=== PATIENT | male | born 1960 | race African-American/Black ===

== ENCOUNTER 2018-04-17 23:17 | Emergency (ER) | payer MEDICARE, MEDICAID ==
[~2018-04-17] VITALS: Ht 177.8 cm; Wt 80.7 kg
[~2018-04-17 23:17] MED LIST: FINA5TAB11 PO; HYDR-4303 PO; IBUP-1957 PO; TAMS0.4C34 PO
[2018-04-17 23:37] VITALS: BP 113/70
[2018-04-17] MEDS ORDERED: LIDOCAINE 1%-EPI 1:100,000 20 ML VIAL ONE (23:45)
--- NOTE | 2018-04-17 23:57 | NUR ---
TRIP NUMBER [id number] FOR [facility] RIDE BACK TO [facility]
== END 2018-04-18 00:32 ==
LOC: ER 23:24
DX: S01.01XA Laceration without foreign body of scalp, initial encounter (principal); F10.10 Alcohol abuse, uncomplicated; Y90.9 Presence of alcohol in blood, level not specified; F17.200 Nicotine dependence, unspecified, uncomplicated; W01.0XXA Fall on same level from slipping, tripping and stumbling without subsequent striking against object, initial encounter; Y93.01 Activity, walking, marching and hiking; Y92.89 Other specified places as the place of occurrence of the external cause; Y99.8 Other external cause status
CPT/HCPCS: A4606; A6402; J3490; Z7610

== ENCOUNTER → 2018-07-09 | Outpatient (CLI) | payer MEDICARE, MEDICAID | LOC: MSC 10:30 | PROVIDERS: ATTEND Anesthesiology | DX: M54.16 Radiculopathy, lumbar region (principal); M17.0 Bilateral primary osteoarthritis of knee; M25.562 Pain in left knee; M25.561 Pain in right knee; M54.5 Low back pain; M25.9 Joint disorder, unspecified; M21.061 Valgus deformity, not elsewhere classified, right knee; F31.9 Bipolar disorder, unspecified; Z79.891 Long term (current) use of opiate analgesic; Z79.899 Other long term (current) drug therapy ==

== ENCOUNTER 2018-10-16 20:33 | Inpatient (IN) | payer MEDICARE, OTHER ==
[~2018-10-16] VITALS: Ht 175.3 cm; Wt 78.5 kg
[2018-10-16] MEDS ORDERED: ACETAMINOPHEN 325 MG TABLET PO PRN (21:30)
[2018-10-16] MEDS ORDERED: TEMAZEPAM 7.5 MG CAPSULE PO PRN (21:30)
[2018-10-16] MEDS ORDERED: MAGNESIUM HYDROXIDE 30 ML UDC PO PRN (21:30)
[2018-10-16] MEDS ORDERED: CELE100C PO (22:19)
[2018-10-16] MEDS ORDERED: BENZ-13 PO (22:21)
[2018-10-16] MEDS ORDERED: ALPR1TAB2 PO (22:22)
[2018-10-16] MEDS ORDERED: LATA2.5D7 EACHEYE (22:24)
[2018-10-16] MEDS ORDERED: DOCU-141 PO (22:30)
[2018-10-16] MEDS: clonazePAM 0.5 MG TABLET PO PRN (22:36)
[2018-10-16 23:19] VITALS: BP 132/70
--- NOTE | 2018-10-16 23:38 | NUR ---
ADMISSION NOTES ADMITTED THIS 58 Y/O MALE PATIENT FROM [facility] , PT. ADMITTED ON 5150 STATUS , PER HOLD DTS/ DTO , FEELING OVERWHELLEMED , ANGARY FEELING THAT LIFE IS NOT WORTH LIVING AND PT. REPORTS HE HAS NOT BEEN ON HIS PSYCH MEDICATION OF MONTHS ,UPON FACE TO FACE ASSESSMENT PATIENT IS A&OX 3 CALM, DEPRESSED , FLAT AFFECT ,EASILY AGITATED , PT.IS POOR HISTORIAN, POOR INSIGHT ,POOR JUDGEMENT ,PT. REFUSED SKIN ASSESSMENT AND REFUSED SIGNS OF ADMISSION PAPERS, AND PT. REFUSED TO PUTING PERSONAL VALUABLE BELONGINGS IN THE SAFE SUPERVISIOR MADE PER PT. I AM CHARGE OF MY PERSONAL VALUABLE BELONGINGS , EXPLAINED RISKS BUT PT. STILL REFUSED, V/S WNL, NO ACUTE DISTRESS NOTED , MD AWARE AND NOTIFIED OF THE ADMISSION, ,ENCOURAGED PT. VERBALIZED ANY FEELING CONCERN TO STAFF, ORIENT TO UNIT POLICY, WILL CONTINUE TO MONITOR FOR Q15 SAFETY AND BEHAVIOR.
[2018-10-17] MEDS ORDERED: IBUPROFEN 800 MG TABLET PO PRN
[2018-10-17 07:51] LABS: BASOPHILS % (AUTO) 0.4 % (0.0-2.0); EOSINOPHILS % (AUTO) 3.6 % (0.0-6.0); HEMATOCRIT 37 % (39-51); LYMPHOCYTES # (AUTO) 1.8 /CMM (0.8-4.8); LYMPHOCYTES % (AUTO) 30.2 % (20.0-44.0); MEAN CORPUSCULAR HGB CONC 32 g/dl (31.0-36.0); MEAN CORPUSCULAR VOLUME 95 fL (80-96); MONOCYTES # (AUTO) 0.7 /CMM (0.1-1.30); MONOCYTES % (AUTO) 12.2 % (2.0-12.0); NEUTROPHILS # (AUTO) 3.2 /CMM (1.8-8.9); NEUTROPHILS % (AUTO) 53.6 % (43.0-81.0); PLATELET COUNT (AUTO) 427 /CMM (150-450); RED BLOOD CELL COUNT(AUTO) 3.87 MIL/uL (4.5-6.0); WHITE BLOOD COUNT (AUTO) 5.9 K/uL (4.3-11.0)
[2018-10-17 08:00] VITALS: BP 113/75
[2018-10-17 08:09] LABS: ALBUMIN 2.9 g/dL (3.4-5.0); BILIRUBIN,TOTAL 0.3 mg/dL (0.2-1.0); CALCIUM, SERUM 9.2 mg/dL (8.5-10.1); CREATININE 0.8 mg/dL (0.6-1.3); POTASSIUM 4.4 mmol/L (3.5-5.1)
[2018-10-17] MEDS: HYDROCODONE/APAP 5/325MG 1 EACH TABLET PO PRN ×2 (08:16→16:40)
[2018-10-17] MEDS: DOCUSATE SODIUM 100 MG CAPSULE PO SCH (09:00)
[2018-10-17] MEDS: FINASTERIDE (5 MG) 5 MG TABLET PO SCH (09:00)
[2018-10-17] MEDS: CELECOXIB 100 MG CAPSULE PO SCH ×2 (09:00→18:16)
[2018-10-17] MEDS: clonazePAM 0.5 MG TABLET PO PRN (09:30)
[2018-10-17 09:31] VITALS: BP 129/63
[2018-10-17] MEDS: BUPROPION XL 150 MG TAB.ER.24 PO SCH (11:14)
[2018-10-17] MEDS: ALPRAZOLAM 1 MG TABLET PO PRN (11:15)
[2018-10-17] MEDS: IBUPROFEN 400 MG TABLET PO PRN ×2 (12:46→21:41)
--- NOTE | 2018-10-17 15:32 | NUR ---
SW contacted pts friend Ezra [phone] per pts request to inform him pt is currently in a psych unit and on a hold and also to discuss pts discharge plan and collateral information. Per friend he stated that pt has a history of leaving board and cares and independent livings and also stating that he is suicidal. Per friend pt often leaves homes and requests money back and has been bouncing from home to home for quit some time. Per friend he stated that pt cannot care for himself and is unable to live alone or live in a [facility]cf[facility]. Friend requests pt be discharged to a care home.
[2018-10-17 16:00] VITALS: BP 106/73
[2018-10-17] MEDS ORDERED: LATANOPROST EYE DROP 0.005% 2.5 ML BOTTLE EACHEYE SCH ×2 (18:00)
[2018-10-17 20:03] VITALS: BP 136/75
[2018-10-17] MEDS: TAMSULOSIN 0.4 MG CAP.SR.24H PO SCH ×2 (21:42→21:46)
[2018-10-17] MEDS: TEMAZEPAM 7.5 MG CAPSULE PO PRN (21:43)
[2018-10-17] MEDS: LATANOPROST EYE DROP 0.005% 2.5 ML BOTTLE OP SCH (21:43)
--- NOTE | 2018-10-18 08:10 | NUR ---
GPS/RN-NOTES PER DR. JOHNSTON D/C RIGO KNIGHT. NOTED AND CARRIED OUT.
[2018-10-18] MEDS: FINASTERIDE (5 MG) 5 MG TABLET PO SCH ×2 (08:14→08:16)
[2018-10-18] MEDS: ALPRAZOLAM 1 MG TABLET PO PRN (08:14)
[2018-10-18] MEDS: CELECOXIB 100 MG CAPSULE PO SCH ×2 (08:14→16:06)
[2018-10-18] MEDS: DOCUSATE SODIUM 100 MG CAPSULE PO SCH ×2 (08:14→08:16)
[2018-10-18] MEDS: BUPROPION XL 150 MG TAB.ER.24 PO SCH (08:14)
--- NOTE | 2018-10-18 08:20 | NUR ---
GPS/RN-NOTES PATIENT REQUESTING XANAX FOR ANXIETY. XANAX 1MG P.O GIVEN PRN ORDER. WILL CONT. MONITORING FOR SAFETY AND BEHAVIOR.
--- NOTE | 2018-10-18 09:01 | NUR ---
INITIAL DISCHARGE PLAN: Patient wishes to be discharged to a SNF. Pt has stated that he does not want to return to his independent living home. SW will help form a safe and proper discharge in collaboration with pt and MD.
--- NOTE | 2018-10-18 09:20 | NUR ---
GPS/RN-NOTES PATIENT IN THE OBSERVATION ROOM LAYING CALM NO ACUTE DISTRESS NOTED.
[2018-10-18] MEDS: HYDROCODONE/APAP 5/325MG 1 EACH TABLET PO PRN ×2 (09:23→17:37)
--- NOTE | 2018-10-18 09:24 | NUR ---
GPS/RN-NOTES PATIENT REQUESTING FOR NORCO FOR LOWER BACK PAIN. NORCO 5/325MG P.O GIVEN PRN ORDER.
--- NOTE | 2018-10-18 09:40 | NUR ---
SW completed substance abuse intervention with pt.
[2018-10-18] MEDS: LORAZEPAM 1 MG TABLET PO PRN (14:22)
--- NOTE | 2018-10-18 14:26 | NUR ---
GPS/RN-NOTES PATIENT REQUESTING FOR ATIVAN FOR ANXIETY. ATIVAN 2MG P.O GIVEN PRN ORDER. WILL CONT. MONITORING FOR SAFETY AND BEHAVIOR.
[2018-10-18] MEDS: IBUPROFEN 400 MG TABLET PO PRN ×2 (15:56→22:12)
[2018-10-18 16:00] VITALS: BP 151/82
--- NOTE | 2018-10-18 16:02 | NUR ---
SW was made aware by TRIM AND BURR OPERATOR that pt had a large amount of marijuana in his personal belongings that was not noted down as contraband when pt was admitted. GUS contacted director of social work and nursing used car sales supervisor to inform them. Nursing used car sales supervisor contacted [facility] and was informed that due to the large amount of marijuana is is considered contraband and thus it must be removed from the patient and tossed int he trash. GUS will inform pt and have nursing staff and security assist with retrieval.
--- NOTE | 2018-10-18 16:05 | NUR ---
GPS/RN-NOTES PATIENT REQUESTING FOR MOTRIN FOR BOTH LEGS PAIN. MOTRIN 800MG P.O GIVEN PRN ORDER.
--- NOTE | 2018-10-18 16:36 | NUR ---
SW witness retrieval of marijuana contraband by security and hospital staff.
--- NOTE | 2018-10-18 17:06 | NUR ---
GPS/RN-NOTES X1 SMALL CONTAINER AND X1 PLASTIC BAG OF MARIJUANA WAS CONFISCATED FROM THE PATIENT. WITNESS BY 2 SECURITY,SW,FUEL CELL TEST ENGINEER AND VARNISH SUPERVISOR ( RICHARD). THE SAID ITEM WAS DISCARDED IN THE NURSING OFFICE.
--- NOTE | 2018-10-18 17:38 | NUR ---
GPS/RN-NOTES PATIENT REQUESTING FOR NORCO FOR GENERALIZE BODY PAIN. NORCO 5/325MG P.O GIVEN PRN ORDER.
[2018-10-18 20:00] VITALS: BP 149/90
--- NOTE | 2018-10-18 20:00 | NUR ---
rn notes Received pt awake sitting in the observation room ; patient complaints of pain at this time. Pt is displaying no s/s of acute/apparent distress at this time. Pt's RR is WNL: unlabored with equal rise and fall of the chest. Pt. is A&Ox3 on room air with a SpO2 of 98. Pt. is med compliant, labile mood, and irritable. Pt denies SI/HI at this time. Pt. educated on the use of the call oliva. Pt bed side rails up x2 for safety; will continue to monitor and maintain safety.
[2018-10-18] MEDS ORDERED: TRAZODONE 50 MG TABLET PO SCH (22:00)
[2018-10-18] MEDS: TAMSULOSIN 0.4 MG CAP.SR.24H PO SCH (22:00)
[2018-10-18] MEDS: TRAZODONE 50 MG TABLET PO SCH (22:02)
[2018-10-18] MEDS: LATANOPROST EYE DROP 0.005% 2.5 ML BOTTLE OP SCH (22:03)
[2018-10-18] MEDS: TEMAZEPAM 7.5 MG CAPSULE PO PRN (22:11)
[2018-10-19] MEDS: HYDROCODONE/APAP 5/325MG 1 EACH TABLET PO PRN ×3 (01:52→20:45)
--- NOTE | 2018-10-19 02:00 | NUR ---
PATIENT REQUESTING FOR NORCO FOR RIGHT AND LEFT KNEE PAIN 04/16. NORCO 5/325MG P.O GIVEN PRN ORDER. WILL CONTINUE TO MONITOR EFFECTIVENESS OF THE MEDICATION.
[2018-10-19 08:00] VITALS: BP 125/77
[2018-10-19] MEDS: BUPROPION XL 150 MG TAB.ER.24 PO SCH (08:45)
[2018-10-19] MEDS: LORAZEPAM 1 MG TABLET PO PRN ×3 (08:45→21:33)
[2018-10-19] MEDS: CELECOXIB 100 MG CAPSULE PO SCH ×2 (08:45→16:54)
[2018-10-19] MEDS: FINASTERIDE (5 MG) 5 MG TABLET PO SCH (08:47)
[2018-10-19] MEDS: DOCUSATE SODIUM 100 MG CAPSULE PO SCH (08:47)
--- NOTE | 2018-10-19 09:55 | NUR ---
rn notes administered narco 5/325 mg po prn for generalized pain 06/17 per patient request, continued monitoring.
[2018-10-19] MEDS: IBUPROFEN 400 MG TABLET PO PRN (13:34)
[2018-10-19 16:00] VITALS: BP 100/56
[2018-10-19 20:00] VITALS: BP 119/77
--- NOTE | 2018-10-19 20:45 | NUR ---
NORCO 3/325 MG TAB PO GIVEN. FOR PAIN LEFT LEG AND ALL OF HIS LEFT SIDE
[2018-10-19] MEDS: TRAZODONE 50 MG TABLET PO SCH (20:46)
[2018-10-19] MEDS: TAMSULOSIN 0.4 MG CAP.SR.24H PO SCH (20:47)
[2018-10-19] MEDS: TEMAZEPAM 7.5 MG CAPSULE PO PRN (20:47)
--- NOTE | 2018-10-19 20:48 | NUR ---
PATIENT STATED THAT HE WANTS TO SLEEP, REQUESTING FOR HIS SLEEPING PILL, TEMAZEPAM 30 MG PO GIVEN
[2018-10-19] MEDS: LATANOPROST EYE DROP 0.005% 2.5 ML BOTTLE OP SCH (21:16)
--- NOTE | 2018-10-19 23:52 | NUR ---
PATIENT STATED THAT HE LIKES ALL THE MEDS FOR TONIGHT EXCEPT FLOMAX.
[2018-10-20 08:04] VITALS: BP 117/73
[2018-10-20] MEDS: BUPROPION XL 150 MG TAB.ER.24 PO SCH (09:11)
[2018-10-20] MEDS: DOCUSATE SODIUM 100 MG CAPSULE PO SCH (09:11)
[2018-10-20] MEDS: CELECOXIB 100 MG CAPSULE PO SCH ×2 (09:11→16:18)
[2018-10-20] MEDS: FINASTERIDE (5 MG) 5 MG TABLET PO SCH (09:12)
[2018-10-20] MEDS: HYDROCODONE/APAP 5/325MG 1 EACH TABLET PO PRN ×2 (09:13→18:06)
[2018-10-20] MEDS: LORAZEPAM 1 MG TABLET PO PRN (12:07)
[2018-10-20] MEDS: IBUPROFEN 400 MG TABLET PO PRN (14:35)
[2018-10-20] MEDS: TEMAZEPAM 7.5 MG CAPSULE PO PRN (21:00)
--- NOTE | 2018-10-20 21:02 | NUR ---
TEMAZEPAM 30 MG CAP PO GIVEN FOR SLEEP PER PATIENT'S REQUEST.
[2018-10-20] MEDS: TAMSULOSIN 0.4 MG CAP.SR.24H PO SCH (21:18)
[2018-10-20] MEDS: TRAZODONE 50 MG TABLET PO SCH (21:18)
[2018-10-20] MEDS: LATANOPROST EYE DROP 0.005% 2.5 ML BOTTLE OP SCH (21:19)
[2018-10-21 08:00] VITALS: BP 122/73
[2018-10-21] MEDS: DOCUSATE SODIUM 100 MG CAPSULE PO SCH (09:00)
[2018-10-21] MEDS: FINASTERIDE (5 MG) 5 MG TABLET PO SCH (09:00)
[2018-10-21] MEDS: CELECOXIB 100 MG CAPSULE PO SCH ×2 (09:25→17:32)
[2018-10-21] MEDS: BUPROPION XL 150 MG TAB.ER.24 PO SCH (09:25)
[2018-10-21] MEDS: HYDROCODONE/APAP 5/325MG 1 EACH TABLET PO PRN ×3 (09:38→22:36)
[2018-10-21] MEDS: LORAZEPAM 1 MG TABLET PO PRN ×2 (10:48→23:01)
--- NOTE | 2018-10-21 10:55 | NUR ---
GUS faxed SNF referral to Christiano, pain coordinator at [address] [address] for review.
--- NOTE | 2018-10-21 13:57 | NUR ---
GUS faxed SNF referral to Amrita, internet marketing coordinator at [facility] Address: [address] [place] [address], [place] [address] for review.
--- NOTE | 2018-10-21 13:59 | NUR ---
SW received a phone call from Amrita, patient resource coordinator at [facility] Address: [address] [place] [phone] stating pt has been accepted to the facility.
[2018-10-21] MEDS: IBUPROFEN 400 MG TABLET PO PRN (15:00)
[2018-10-21 16:00] VITALS: BP 122/66
[2018-10-21] MEDS: MAG HYDROX/AL HYDROX/SIMETH 30 ML UDC PO PRN (19:57)
[2018-10-21 20:00] VITALS: BP 118/75
[2018-10-21] MEDS: LATANOPROST EYE DROP 0.005% 2.5 ML BOTTLE OP SCH (21:04)
[2018-10-21] MEDS: TRAZODONE 50 MG TABLET PO SCH (21:05)
[2018-10-21] MEDS: TAMSULOSIN 0.4 MG CAP.SR.24H PO SCH (21:07)
--- NOTE | 2018-10-21 21:07 | NUR ---
GPS RN NOTES: PATIENT REFUSED FLOMAX SCHEDULED. OFFERED X3. DESPITE EDUCATION GIVEN. PATIENT STILL REFUSED.
[2018-10-21] MEDS: TEMAZEPAM 7.5 MG CAPSULE PO PRN (21:13)
--- NOTE | 2018-10-21 22:36 | NUR ---
GPS-RN PRN NOTES PATIENT C/O RIGHT KNEE PAIN, 05/17 AND REQUESTED FOR NORCO. ADMINISTERED NORCO 5/325MG PO ORDERED. WILL CONTINUE TO MONITOR AND ASSESS FOR PAIN.
--- NOTE | 2018-10-21 23:01 | NUR ---
GPS- Addendum: 10/22/18 at 0517 by JANELL NIEVES RN GPS-CHAITANYA MANUELN NOTES: PATIENT C/O FEELING ANXIOUS AND REQUESTED FOR ATIVAN. ADMINISTERED ATIVAN 2MG PO ORDERED. WILL CONTINUE TO MONITOR CLOSELY PATIENT'S SAFETY AND BEHAVIOR.
[2018-10-22] MEDS: HYDROCODONE/APAP 5/325MG 1 EACH TABLET PO PRN ×2 (07:40→15:33)
[2018-10-22] MEDS: CELECOXIB 100 MG CAPSULE PO SCH ×2 (08:23→16:51)
[2018-10-22] MEDS: FINASTERIDE (5 MG) 5 MG TABLET PO SCH ×2 (08:23→08:30)
[2018-10-22] MEDS: BUPROPION XL 150 MG TAB.ER.24 PO SCH (08:23)
[2018-10-22] MEDS: DOCUSATE SODIUM 100 MG CAPSULE PO SCH ×2 (08:23→08:30)
--- NOTE | 2018-10-22 09:00 | NUR ---
REFUSED AM VITALS.MED. X 1 FOR PAIN WITH NORCO. REQUESTING ATIVAN ADDITIONALLY,BUT NOT DUE.
--- NOTE | 2018-10-22 10:05 | NUR ---
TRANSFERRED TO [facility] RM [id number].REPORT GIVEN TO CHAITANYA HANCOCK.BELONGINGS SENT WITH PT.AWARE PT. REFUSED EARLIER VS.
--- NOTE | 2018-10-22 10:15 | NUR ---
MS/auto driver Patient transfered from GPS as overflow. Oriented to new surroundings, sitter remains at bedside due to hold still being in effect.
[2018-10-22] MEDS: LORAZEPAM 1 MG TABLET PO PRN ×2 (11:05→22:58)
[2018-10-22] MEDS: MAG HYDROX/AL HYDROX/SIMETH 30 ML UDC PO PRN (15:41)
--- NOTE | 2018-10-22 15:46 | NUR ---
MS/RN Pain medication Patient complaining of generalized pain, requesting norco. One tablet of norco administered, will monitor effectiveness.
[2018-10-22 16:00] VITALS: BP_SYST 121; BP_SYST 152; BP_DIAS 82; BP_DIAS 84
--- NOTE | 2018-10-22 18:11 | NUR ---
MS/RN End note Patient has remained calm and cooperative throughout the day, no behavior outbursts or concerns. All medications administered as ordered, orders noted and carried out . Will continue to monitor and endorse to nightshift.
--- NOTE | 2018-10-22 20:00 | NUR ---
RECIEVING NOTES: ALERT AND ORIENTATED X3 SPEECH CLEAR AND SOFT SPOKEN. ASKING FOR PAIN MEDICATION, INSTRUCTED HIM THAT IT WAS NOT TIME, HE COMMENTED GIVE ME SOMETHING, WHEN DO YOU PASS MY NIGHT TIME PILLS?. INFORMED HIM THAT AROUND 9PM.
[2018-10-22 20:17] VITALS: BP 129/74
[2018-10-22] MEDS: TEMAZEPAM 7.5 MG CAPSULE PO PRN (21:25)
[2018-10-22] MEDS: TAMSULOSIN 0.4 MG CAP.SR.24H PO SCH (21:27)
[2018-10-22] MEDS: LATANOPROST EYE DROP 0.005% 2.5 ML BOTTLE OP SCH (21:27)
[2018-10-22] MEDS: TRAZODONE 50 MG TABLET PO SCH (21:27)
[2018-10-23] MEDS: HYDROCODONE/APAP 5/325MG 1 EACH TABLET PO PRN ×3 (00:08→16:07)
--- NOTE | 2018-10-23 05:22 | NUR ---
ENDING NOTES: SLEPT 8 HOURS THIS NIGHT. HE IS MEDICINE SEEKING, BUT WHEN TOLD THE TIME IS NOT THE TIME HE WAS COOPERATIVE ABOUT WAITING. SLEPT WITH HIS RADIO ON SOOTHING MUSIC. SPEECH CLEAR. AROUSES EASY WHEN ARE TOUCHED AND NAME SPOKES. SITTER AT THE BEDSIDE
--- NOTE | 2018-10-23 07:10 | NUR ---
RN NOTES PATIENT AWAKE, ALERT AND ORIENTED, BREATHING EVEN AND UNLABORED, NO SOB NOTED, C/O MILD PAIN ON THE KNEE, REFUSING BREAKFAST AT THIS TIME, OFFERED MULTIPLE TIMES AND OFFERED TO SAVE FOR LATER, BUT PATIENT REFUSED. SITTER AT BEDSIDE, KEPT COMFORTABLE, NEEDS ATTENDED, WILL CONTINUE TO MONITOR.
[2018-10-23] MEDS: DOCUSATE SODIUM 100 MG CAPSULE PO SCH (08:23)
[2018-10-23] MEDS: BUPROPION XL 150 MG TAB.ER.24 PO SCH (08:24)
[2018-10-23] MEDS: CELECOXIB 100 MG CAPSULE PO SCH ×2 (08:24→16:06)
[2018-10-23] MEDS: FINASTERIDE (5 MG) 5 MG TABLET PO SCH (08:24)
[2018-10-23] MEDS: LORAZEPAM 1 MG TABLET PO PRN ×2 (10:57→23:31)
[2018-10-23 16:33] VITALS: BP 117/69
--- NOTE | 2018-10-23 18:45 | NUR ---
RN NOTES PATIENT IN NO DISTRESS, DENIES SI/HI AT THIS TIME, MOOD IS STILL LABILE. DENIES PAIN AT THIS TIME. SITTER AT BEDSIDE, NEEDS ATTENDED, CALL LIGHT WITHIN REACH, WILL ENDORSE TO LUMBER STRAIGHTENED FOR ELVIA.
--- NOTE | 2018-10-23 20:08 | NUR ---
RECIEVIMG NOTES: ALERT SPEECH CLEAR. COMMENTED HE WANTS NO MEDICATION TONIGHT, REASON THIS PLACE HAS TOO MUCH GOSSIP AND I WANT NO MEDICATION. REVIEWED HIS MEDICATION WITH HIM AND EXPLAINED THE REASON THE MD ORDERED, HE STATED HE KNOWS AND AGAIN REFUSED THE MEDICATION. I DID TELL HIM THAT ID BE IN AND OUT AND PLEASE ASK ME IF HE CHANGES HIS MIND. OFFERED AN SNACK AND HE REFUSED. NOTED AN ANGER TONE
[2018-10-23 20:16] VITALS: BP 127/72
[2018-10-23] MEDS: TAMSULOSIN 0.4 MG CAP.SR.24H PO SCH (22:00)
[2018-10-23] MEDS: TRAZODONE 50 MG TABLET PO SCH (22:19)
[2018-10-23] MEDS: MAG HYDROX/AL HYDROX/SIMETH 30 ML UDC PO PRN (22:20)
[2018-10-23] MEDS: TEMAZEPAM 7.5 MG CAPSULE PO PRN (22:20)
[2018-10-23] MEDS: LATANOPROST EYE DROP 0.005% 2.5 ML BOTTLE OP SCH (22:23)
[2018-10-24] MEDS: HYDROCODONE/APAP 5/325MG 1 EACH TABLET PO PRN ×3 (00:10→17:06)
--- NOTE | 2018-10-24 04:43 | NUR ---
CLOSING NOTES: REFUSED ALL HIS ROUTINE MEDICATION EXCEPT THE EYE DROPS. NO REASON GIVEN. ATIVAN GIVEN UPON HIS REQUISTE AND NORCO FOR GENERALIZED ARTHRITIC PAIN BOTH EFFECTIVE. QUIET AND UNEVENTFUL NIGHT SITTER AT THE BEDSIDE PLAN TO MOVE VIA BED TO [facility] AT 6AM PER SUPERVISIOR ORDER.
--- NOTE | 2018-10-24 08:00 | NUR ---
GPS RN AM NOTES RECEIVED PT. ALERT AND ORIENTED X3.NO PARTICULAR DISTRESS,ALTHOUGH MEDSEEKING, REFUSED COLACE AND PROSCAR INSPITE OF EXPLAINING ITS RISKS AND BENEFITS.ASKING FOR NORCO AND ATIVAN MEDICATIONS IN ADVANCE. REFUSED AM.BREAKFAST.WILL CONT. TO MONITOR Q 15 MINUTES FOR SAFETY AND BEHAVIOR.
--- NOTE | 2018-10-24 08:15 | NUR ---
GUS met with APS social secretary Phillip, File #[id number] and provided her with discharge information.
[2018-10-24] MEDS: LORAZEPAM 1 MG TABLET PO PRN ×2 (08:37→11:05)
[2018-10-24] MEDS: BUPROPION XL 150 MG TAB.ER.24 PO SCH (08:38)
[2018-10-24] MEDS: DOCUSATE SODIUM 100 MG CAPSULE PO SCH ×2 (08:38→09:00)
[2018-10-24] MEDS: CELECOXIB 100 MG CAPSULE PO SCH ×2 (08:38→16:38)
[2018-10-24] MEDS: FINASTERIDE (5 MG) 5 MG TABLET PO SCH ×2 (08:38→09:00)
[2018-10-24] MEDS: IBUPROFEN 400 MG TABLET PO PRN (12:52)
[2018-10-24 16:00] VITALS: BP 105/69
[2018-10-24 20:00] VITALS: BP_SYST 101; BP_SYST 107; BP_DIAS 57
[2018-10-24] MEDS: TEMAZEPAM 7.5 MG CAPSULE PO PRN (21:33)
[2018-10-24] MEDS: TAMSULOSIN 0.4 MG CAP.SR.24H PO SCH (21:33)
[2018-10-24] MEDS: TRAZODONE 50 MG TABLET PO SCH (21:33)
[2018-10-24] MEDS: LATANOPROST EYE DROP 0.005% 2.5 ML BOTTLE OP SCH (21:35)
[2018-10-25] MEDS: HYDROCODONE/APAP 5/325MG 1 EACH TABLET PO PRN (06:05)
[2018-10-25 08:00] VITALS: BP 133/78
[2018-10-25] MEDS: DOCUSATE SODIUM 100 MG CAPSULE PO SCH (08:43)
[2018-10-25] MEDS: FINASTERIDE (5 MG) 5 MG TABLET PO SCH (08:44)
[2018-10-25] MEDS: CELECOXIB 100 MG CAPSULE PO SCH (08:47)
[2018-10-25] MEDS: BUPROPION XL 150 MG TAB.ER.24 PO SCH (08:47)
[2018-10-25] MEDS: LORAZEPAM 1 MG TABLET PO PRN (08:47)
--- NOTE | 2018-10-25 09:00 | NUR ---
RN-CO:DR JOHNSTON ORDERED TO DISCONTINUE HOLD AND DISCHARGE PATIENT TODAY TO SNF. NOTED AND CARRIED OUT. Denied suicidal and homicidal ideation. Denied auditory and visual hallucination. Calm and cooperative to care. No acute distress noted. Medically cleared for discharge.
[2018-10-25] MEDS: IBUPROFEN 400 MG TABLET PO PRN (11:43)
--- NOTE | 2018-10-25 11:45 | NUR ---
RN-CO: Dr. Mathew seen and examined the patient and medically cleared him for discharge.
--- NOTE | 2018-10-25 14:18 | NUR ---
DISCHARGE PLAN: Pt was discharged at 2:00pm via [facility] ambulance trip #[id number] to [facility] Address: [address] [place] [address] . notified pts friend Ezra [phone]. Pts mood was euthymic with congruent affect. Pts denied suicidal/homicidal ideations and denied visual/auditory hallucinations. Pt will address his substance use and continue psychiatric treatment with Psychiatrist: Dr. Mau Townsend [address], [place] [address] [phone] and be under the car of Organic Gardening Teacher: Dr. Mars Lawler [address] [facility] [facility] [address], [place] [address] [phone]. For smoking cessation, patient was referred to the [employer] and [place] [employer] [id number]. Pt will also participate in a telephone meeting with Nicotine Anonymous [phone] on Friday October 26, 2018 at 8:00am. The multidisciplinary exitcare form was done, printed, signed, and given to the patient.
--- NOTE | 2018-10-25 14:20 | NUR ---
GPS middle school counselor Note Patient was discharged at 1420 via [facility] ambulance trip #[id number] to [facility] Address: [address] [facility], [place] [address]; . Report called to CHAITANYA Peterson from receiving facility. Patient denies any auditory or any hallucinations, denies suicidal and homicidal ideations at this time. Patient is alert and oriented x3, able to make needs known. Respirations even and unlabored on room air, vital signs stable. Medically cleared for discharge via hospitalist. Ambulates with steady gait and front-wheeled walker. Skin assessment and discharge photos refused, educated patient on importance of skin assessment. Continued refusal. ID band removed from patient. Discharge instructions and Exitcare provided to patient, verbalized understanding and acknowledged via signature on forms, copies placed in chart. Patient left with all personal belongings and medications, acknowledged via signature on belongings form, copy placed in chart. SW notified pts friend Ezra [phone]. Pts mood was euthymic with congruent affect. Pts denied suicidal/homicidal ideations and denied visual/auditory hallucinations. Pt will address his substance use and continue psychiatric treatment with Psychiatrist: Dr. Mau Townsend [address] [facility] [address], [place], [place] [address] [phone] and be under the care of Theatrical Trouper: Dr. Mars Lawler [address] [facility] [address], [place] [address] [phone]. For smoking cessation, patient was referred to the [employer] and [place] [employer] [id number]. Pt will also participate in a telephone meeting with Nicotine Anonymous [phone] on Friday October 26, 2018 at 8:00am. The multidisciplinary exitcare form was done, printed, signed, and given to the patient.
[2018-10-25 15:59] VITALS: BP 125/74
--- NOTE | 2018-11-08 13:35 | NUR ---
15 DAY SUBSTANCE ABUSE FOLLOW-UP: Excluded due to D/C to SNF.
== END 2018-10-25 14:20 | DRG 885 ==
LOC: GPS 20:33 → GPSOV2 10-22 10:13 → GPS 10-24 06:12
PROVIDERS: ADMIT Psychiatry & Neurology Psychiatry
DX: F33.2 Major depressive disorder, recurrent severe without psychotic features (principal); F11.20 Opioid dependence, uncomplicated; E44.0 Moderate protein-calorie malnutrition; F13.20 Sedative, hypnotic or anxiolytic dependence, uncomplicated; F41.1 Generalized anxiety disorder; Z59.0 Homelessness; Z91.5 Personal history of self-harm; F17.210 Nicotine dependence, cigarettes, uncomplicated; Z79.899 Other long term (current) drug therapy; M19.90 Unspecified osteoarthritis, unspecified site; H40.9 Unspecified glaucoma; G89.4 Chronic pain syndrome; Z68.25 Body mass index [BMI] 25.0-25.9, adult; D64.9 Anemia, unspecified; J44.9 Chronic obstructive pulmonary disease, unspecified
CPT/HCPCS: 36415; 80053-TC; 80061-TC; 85025-TC; 87081-TC